=== PATIENT | female | born 1960 | race American Indian/Alaskan Native ===

== ENCOUNTER 2021-04-25 23:17 | Emergency (ER) | payer MEDICAID ==
[2021-04-25] MEDS ORDERED: ALBUTEROL 2.5 MG/3 ML NEBU IH ONE (23:30)
[2021-04-25] MEDS ORDERED: predniSONE 20 MG TAB PO ONE (23:30)
[2021-04-25] MEDS ORDERED: IPRATROPIUM 0.02% NEBU 2.5 ML IH ONE (23:30)
[2021-04-25 23:32] VITALS: BP 158/80
--- NOTE | 2021-04-25 23:34 | Emergency Department Report ---
ED Shortness of Breath HPI - General Stated Complaint: LEG PAIN Time Seen by Provider: 04/25/21 23:28 - History of Present Illness Initial Comments: Patient brought in by EMS secondary shortness of breath. They were called because of trouble breathing. Patient has a long history of asthma and emphysema and states that she cannot breathe. They noticed that she was wheezing. They administered albuterol 5 mg as well as oxygen. She had improved. They brought her here for evaluation. She was complaining of right hip pain which is chronic. She is homeless which EMS believes is the crux of the problem. Apparently she was kicked out of her family's house about 5 days ago and is now homeless. Upon arrival here, patient is complaining of severe right hip pain. She states that she has chronic pain related to rheumatoid arthritis. She normally takes Percocet and sees a pain management physician. She states that she did not have access to her medications because she is homeless. She could not "carry them all around." This includes her respiratory medications. There is no new trauma involving the right hip. The pain is constant and aching. It is worse with movement. - Related Data Previous Rx's Medication Instructions Recorded Last Taken Type Ipratropium/Albuter (Nf) 2 puff IH QID #1 inha 04/26/21 Unknown Rx [Combivent (Nf)] predniSONE [Deltasone] 50 mg PO QDAY #5 tab 04/26/21 Unknown Rx Allergies Allergy/AdvReac Type Severity Reaction Status Date / Time doxycycline Allergy Hives Verified 04/25/21 23:27 Penicillins Allergy Hives Verified 04/25/21 23:27 tramadol Allergy Hives Verified 04/25/21 23:27 ED Review of Systems ROS: Stated complaint: LEG PAIN Other details as noted in HPI Comment: All other systems reviewed and negative Constitutional: denies: fever Eyes: denies: eye pain ENT: denies: throat pain Respiratory: see HPI Cardiovascular: denies: chest pain Endocrine: denies: unexplained weight loss Gastrointestinal: denies: abdominal pain Genitourinary: denies: dysuria Musculoskeletal: denies: back pain Skin: denies: rash Neurological: denies: headache Hematological/Lymphatic: denies: easy bruising ED Past Medical Hx - Past Medical History Hx Arthritis: Yes (Rheumatoid) Hx Asthma: Yes Hx COPD: Yes Additional medical history: Chronic pain syndrome - Family History Family history: other (Rheumatoid disease) - Medications Home Medications: Home Medications Medication Instructions Recorded Confirmed Last Taken Type Ipratropium/Albuter (Nf) 2 puff IH QID #1 inha 04/26/21 Unknown Rx [Combivent (Nf)] predniSONE [Deltasone] 50 mg PO QDAY #5 tab 04/26/21 Unknown Rx ED Physical Exam - General Limitations: No Limitations, Other (Pulse ox noted and normal) General appearance: alert, in no apparent distress - Head Head exam: Present: atraumatic, normocephalic, normal inspection - Eye Eye exam: Present: normal appearance, EOMI. Absent: scleral icterus - ENT ENT exam: Present: normal orophraynx, normal external ear exam - Neck Neck exam: Present: normal inspection. Absent: meningismus - Respiratory Respiratory exam: Present: wheezes, prolonged expiratory - Cardiovascular Cardiovascular Exam: Present: regular rate, normal rhythm - GI/Abdominal GI/Abdominal exam: Present: soft. Absent: tenderness - Extremities Exam Extremities exam: Present: normal capillary refill, pedal edema (1+). Absent: calf tenderness - Back Exam Back exam: Absent: CVA tenderness (R), CVA tenderness (L) - Neurological Exam Neurological exam: Present: alert, oriented X3, CN II-XII intact, reflexes normal, other (Gait was not assessed due to pain). Absent: motor sensory deficit - Psychiatric Psychiatric exam: Present: normal affect, normal mood - Skin Skin exam: Present: warm, dry ED Course Vital Signs 04/25/21 23:31 Temperature 98.9 F Pulse Rate 84 Respiratory 18 Rate Blood Pressure 158/80 [Left] O2 Sat by Pulse 99 Oximetry - Reevaluation(s) Reevaluation #1: 04/25/21 23:30 EMS was met upon arrival. DuoNeb was ordered. Steroids were ordered. Old records reviewed. Reevaluation #2: 04/26/21 00:51 Patient refused steroids. She was given Tylenol and discharged. ED Medical Decision Making - Medical Decision Making Patient presents secondary to difficulty breathing and leg pain. She has chronic leg pain. She requested Percocet. We will not provide opioids for chronic pain. Patient did have trouble breathing. She was treated for her asthma. She was not hypoxic. There was no clinical symptoms suggestive of pneumonia. She did not have a fever or productive cough. Patient was in no respiratory distress. There is no indication for admission. She was discharged with referral to her PCP. I did provide a prescription for steroids whether or not she will take it is unknown however. Critical Care Time: No Critical care attestation.: If time is entered above; I have spent that time in minutes in the direct care of this critically ill patient, excluding procedure time. ED Disposition Clinical Impression: Asthma exacerbation Qualifiers: Asthma severity: mild Asthma persistence: intermittent Qualified Code(s): J45.21 - Mild intermittent asthma with (acute) exacerbation Chronic leg pain Qualifiers: Laterality: right Qualified Code(s): M79.604 - Pain in right leg; G89.29 - Other chronic pain Disposition: 01 HOME / SELF CARE / HOMELESS Is pt being admited?: No Condition: Stable Instructions: Bronchospasm, Adult, How to Use a Metered Dose Inhaler, Chronic Pain, Adult Additional Instructions: Take your medication. Drink plenty water. Return for problems. Follow-up with your regular doctor for recheck and further management. See the referral physician if you do not have a regular doctor. Prescriptions: Ipratropium/Albuter (Nf) [Combivent (Nf)] 2 puff IH QID #1 inha predniSONE [Deltasone] 50 mg PO QDAY #5 tab Referrals: PRIMARY MD BRI [Referring] - 3-5 Days MERY REINOSO MD [Staff Physician] - 3-5 Days
[2021-04-26] MEDS ORDERED: ACETAMINOPHEN 500 MG TAB PO ONE (00:51)
== END 2021-04-26 01:45 | disposition home or self-care (01) ==
LOC: ED 23:17
DX: J45.901 Unspecified asthma with (acute) exacerbation (principal); G89.29 Other chronic pain; M79.604 Pain in right leg; Z88.6 Allergy status to analgesic agent; Z88.8 Allergy status to other drugs, medicaments and biological substances; Z88.1 Allergy status to other antibiotic agents; Z79.899 Other long term (current) drug therapy
CPT/HCPCS: 94640; 99283; J7512

== ENCOUNTER 2021-06-05 11:47 | Emergency (ER) | payer MEDICAID ==
[2021-06-05 11:56] VITALS: BP 174/96
[2021-06-05] MEDS ORDERED: predniSONE 20 MG TAB PO ONE (11:59)
[2021-06-05] MEDS ORDERED: ALBUTEROL 2.5 MG/3 ML NEBU IH ONE (11:59)
[2021-06-05] MEDS ORDERED: IPRATROPIUM 0.02% NEBU 2.5 ML IH ONE (11:59)
--- NOTE | 2021-06-05 12:07 | Emergency Department Report ---
ED Shortness of Breath HPI - General Chief Complaint: Dyspnea/Respdistress Stated Complaint: SOB Time Seen by Provider: 06/05/21 11:59 Source: patient, EMS Mode of arrival: Stretcher Limitations: No Limitations - History of Present Illness Initial Comments: Patient presents by EMS secondary to shortness of breath. She has a history of COPD. She was diagnosed with COVID. Apparently she is staying at some type of hotel specifically for COVID-positive patients. She called EMS because she was having trouble breathing. EMS did give her a nebulizer in route due to wheezing. She was satting well. She is still having dyspnea upon arrival with labored respirations. Patient has never been intubated before. She states that she still has cough, fever, congestion, muscle aches, body aches, headache, nausea, vomiting, and diarrhea. She states that she "feels like somebody beat her up." - Related Data Previous Rx's Medication Instructions Recorded Last Taken Type HYDROcodone/APAP 5-325 [Java 1 each PO Q4HR PRN #10 tablet 04/29/21 Unknown Rx 5/325] hydroCHLOROthiazide [HCTZ] 25 mg PO QDAY #30 tablet 04/29/21 Unknown Rx ALBUTEROL NEB's [Proventil 0.083% 2.5 mg IH QID PRN #30 neb 06/05/21 Unknown Rx NEBS] Ipratropium/Albuter (Nf) 2 puff IH QID #1 inha 06/05/21 Unknown Rx [Combivent Inhaler] predniSONE [Deltasone] 50 mg PO QDAY #4 tab 06/05/21 Unknown Rx Allergies Allergy/AdvReac Type Severity Reaction Status Date / Time doxycycline Allergy Hives Verified 04/25/21 23:27 Penicillins Allergy Hives Verified 04/25/21 23:27 tramadol Allergy Hives Verified 04/25/21 23:27 ED Review of Systems ROS: Stated complaint: SOB Other details as noted in HPI Comment: All other systems reviewed and negative Constitutional: see HPI Eyes: denies: eye pain ENT: denies: throat pain Respiratory: see HPI Cardiovascular: denies: chest pain Endocrine: denies: unexplained weight loss Gastrointestinal: as per HPI Genitourinary: denies: dysuria Musculoskeletal: as per HPI Skin: denies: rash Neurological: as per HPI Hematological/Lymphatic: denies: easy bruising ED Past Medical Hx - Past Medical History Previous Medical History?: Yes Hx Hypertension: Yes Hx Arthritis: Yes (Rheumatoid) Hx Asthma: Yes Hx COPD: Yes Additional medical history: Chronic pain syndrome - Family History Family history: no significant - Medications Home Medications: Home Medications Medication Instructions Recorded Confirmed Last Taken Type HYDROcodone/APAP 5-325 [Java 1 each PO Q4HR PRN #10 tablet 04/29/21 Unknown Rx 5/325] hydroCHLOROthiazide [HCTZ] 25 mg PO QDAY #30 tablet 04/29/21 Unknown Rx ALBUTEROL NEB's [Proventil 0.083% 2.5 mg IH QID PRN #30 neb 06/05/21 Unknown Rx NEBS] Ipratropium/Albuter (Nf) 2 puff IH QID #1 inha 06/05/21 Unknown Rx [Combivent Inhaler] predniSONE [Deltasone] 50 mg PO QDAY #4 tab 06/05/21 Unknown Rx ED Physical Exam - General Limitations: No Limitations, Other (Pulse ox noted and normal) General appearance: alert, in distress (Moderate) - Head Head exam: Present: atraumatic, normocephalic - Eye Eye exam: Present: normal appearance, EOMI - ENT ENT exam: Present: normal orophraynx, normal external ear exam - Neck Neck exam: Present: normal inspection. Absent: meningismus - Respiratory Respiratory exam: Present: respiratory distress (Moderate), wheezes (Bilateral), accessory muscle use, prolonged expiratory - Cardiovascular Cardiovascular Exam: Present: regular rate, normal rhythm - GI/Abdominal GI/Abdominal exam: Present: soft. Absent: tenderness - Extremities Exam Extremities exam: Present: normal capillary refill. Absent: pedal edema - Back Exam Back exam: Absent: CVA tenderness (R), CVA tenderness (L) - Neurological Exam Neurological exam: Present: alert, oriented X3, CN II-XII intact. Absent: motor sensory deficit - Psychiatric Psychiatric exam: Present: normal affect, normal mood - Skin Skin exam: Present: warm, dry ED Course Vital Signs 06/05/21 11:50 Temperature 98.4 F Pulse Rate 85 Respiratory 16 Rate Blood Pressure 174/96 [Left] O2 Sat by Pulse 99 Oximetry - Reevaluation(s) Reevaluation #1: 06/05/21 12:05 EMS was met. Albuterol and Atrovent were ordered. Old records noted. Reevaluation #2: 06/05/21 13:28 After the nebs, patient was discharged. ED Medical Decision Making - Medical Decision Making Patient presents with shortness of breath in the setting of COVID and COPD. She is not hypoxic. She does not have impending respiratory failure. She does not require intubation. Patient was treated symptomatically and discharged. She was referred to her PCP for recheck and outpatient follow-up. She should continue to isolate given the recent diagnosis of coronavirus. Critical Care Time: No Critical care attestation.: If time is entered above; I have spent that time in minutes in the direct care of this critically ill patient, excluding procedure time. ED Disposition Clinical Impression: COPD exacerbation, COVID-19 virus infection Disposition: HOME / SELF CARE / HOMELESS Is pt being admited?: No Condition: Stable Instructions: Chronic Obstructive Pulmonary Disease (ED), COVID-19 Frequently Asked Questions, Chronic Obstructive Pulmonary Disease Exacerbation, [id number] Additional Instructions: Push plenty water. Return for problems. Follow-up with your regular doctor. Continue home medication. Prescriptions: Ipratropium/Albuter (Nf) [Combivent Inhaler] 2 puff IH QID #1 inha predniSONE [Deltasone] 50 mg PO QDAY #4 tab ALBUTEROL NEB's [Proventil 0.083% NEBS] 2.5 mg IH QID PRN #30 neb PRN Reason: Wheezing Referrals: PRIMARY CARE, [Referring] - 3-5 Days
== END 2021-06-05 14:12 | disposition home or self-care (01) ==
LOC: ED 11:47
DX: U07.1 COVID-19 (principal); J44.9 Chronic obstructive pulmonary disease, unspecified; J45.901 Unspecified asthma with (acute) exacerbation; I10 Essential (primary) hypertension; M06.9 Rheumatoid arthritis, unspecified; J45.909 Unspecified asthma, uncomplicated; Z88.1 Allergy status to other antibiotic agents; Z88.0 Allergy status to penicillin; Z91.09 Other allergy status, other than to drugs and biological substances; Z79.899 Other long term (current) drug therapy
CPT/HCPCS: 99283